=== PATIENT | female | born 1980 | race Caucasian/White ===

== ENCOUNTER 2016-04-10 10:55 | Emergency (ER) | payer OTHER ==
[2016-04-10 11:01] VITALS: PULSE 94; RESP 16; TEMP 98.4; O2SAT 97
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
[2016-04-10 11:48] VITALS: BP 145/82
== END 2016-04-10 11:50 | disposition home or self-care (01) ==
DX: S16.1XXA Strain of muscle, fascia and tendon at neck level, initial encounter (principal); S39.012A Strain of muscle, fascia and tendon of lower back, initial encounter; J45.909 Unspecified asthma, uncomplicated; V49.49XA Driver injured in collision with other motor vehicles in traffic accident, initial encounter; Y92.410 Unspecified street and highway as the place of occurrence of the external cause; Y93.89 Activity, other specified